=== PATIENT | male | born 1995 | race Caucasian/White ===

== ENCOUNTER 2018-09-19 22:00 | Emergency (ER) | payer BC ==
[2018-09-19 22:49] VITALS: BP 151/107
[2018-09-19] MEDS ORDERED: Lidocaine 1% 20 ML MDV INJECT ONE (23:38)
[2018-09-20] MEDS ORDERED: Diphtheria,Pertussis(Acell),Tetanus Vaccine 0.5 ML Syringe IM ONE (00:53)
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
--- NOTE | 2018-09-22 08:14 | CR ---
Left elbow: Three views of the left elbow were obtained. Comparison: No previous elbow study. Soft tissue swelling is identified. Joint spaces are preserved. No acute fracture, dislocation or other bony abnormality is seen. Impression: 1. Soft tissue swelling. No bony abnormality is identified on left elbow study. Diagnostic code #2
--- NOTE | 2018-09-22 09:13 | CR ---
Left hand: Four views of left hand were obtained. Comparison: No previous hand exam. Fracture as well as bony and soft tissue amputation noted within the distal left third finger. Small chip fracture is also noted off the corner base of the distal phalanx of the third finger. Soft tissue swelling is noted. Several small bony densities are seen within the soft tissues compatible with small fracture fragments. No proximal bony abnormality is seen. Impression: 1. Soft tissue and bony amputation within the distal left third finger with additional small fracture as noted above. 2. Soft tissue swelling. Diagnostic code #3
== END 2018-09-20 01:22 | disposition home or self-care (01) ==
LOC: JD.ED 22:00
DX: S62.663B Nondisplaced fracture of distal phalanx of left middle finger, initial encounter for open fracture (principal); S50.02XA Contusion of left elbow, initial encounter; S50.312A Abrasion of left elbow, initial encounter; S30.810A Abrasion of lower back and pelvis, initial encounter; F17.210 Nicotine dependence, cigarettes, uncomplicated; V40.9XXA Unspecified car occupant injured in collision with pedestrian or animal in traffic accident, initial encounter; Z23 Encounter for immunization
CPT/HCPCS: 11760; 73080-26-LT; 73080-LT; 73130-26-LT; 73130-LT; 90471; 90700; 99284; 99284-25

== ENCOUNTER 2018-12-21 14:10 | Emergency (ER) | payer BC ==
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
[2018-12-21 18:27] VITALS: BP 123/71
--- NOTE | 2018-12-21 19:35 | CR ---
Left ankle: Four views of the left ankle were obtained. Comparison: No previous ankle study. Medial malleolus fracture is noted. Fracture line is widened by about 5 mm. Additional fracture is noted off the anterolateral tibia which is slightly comminuted. Mild displacement is seen of this fracture fragment. Well-corticated calcification is noted on the ankle mortise view between the talus and fibula believed to be old. Diffuse soft tissue swelling is present. Impression: 1. Fracture within the medial malleolus as well as anterolateral corner of the tibia. Mild displacement is seen. 2. Diffuse soft tissue swelling. Diagnostic code #3
== END 2018-12-21 16:40 | disposition home or self-care (01) ==
LOC: JD.ED 14:10
DX: S82.842A Displaced bimalleolar fracture of left lower leg, initial encounter for closed fracture (principal); F17.290 Nicotine dependence, other tobacco product, uncomplicated; V19.88XA Pedal cyclist (driver) (passenger) injured in other specified transport accidents, initial encounter
CPT/HCPCS: 29515; 73610-26-LT; 73610-LT; 99283-25